=== PATIENT | male | born 1995 | race Caucasian/White ===

== ENCOUNTER 2017-03-10 21:54 | Emergency (ER) | payer OTHER ==
[~2017-03-10] VITALS: Ht 170.2 cm; Wt 76.0 kg
[2017-03-10 21:58] VITALS: BP 136/81
== END 2017-03-11 00:05 | disposition home or self-care (01) ==
LOC: ED 23:45
DX: B37.2 Candidiasis of skin and nail (principal); B35.6 Tinea cruris
CPT/HCPCS: 81003; 99283